=== PATIENT | female | born 1990 | race Caucasian/White ===

== ENCOUNTER 2018-03-09 19:58 | Inpatient (IN) ==
[2018-03-09 21:15] LABS: Baso % (Auto) 0.3 % (0.0-2.0); Eos # (Auto) 0.2 th/mm3 (0.0-0.4); Eos % (Auto) 1.4 % (0.0-4.0); Hemoglobin 12.8 gm/dL (11.6-15.3); Lymph # (Auto) 2.1 th/mm3 (1.0-4.8); Lymph % (Auto) 16.7 % (9.0-44.0); Mean Corpuscular HGB Conc 33.6 % (32.0-36.0); Mean Corpuscular Hemoglobin 28.6 pg (27.0-34.0); Mean Corpuscular Volume 84.9 fL (80.0-100.0); Mean Platelet Volume 9.3 fL (7.0-11.0); Mono # (Auto) 0.9 th/mm3 (0.0-0.9); Mono % (Auto) 7.6 % (0.0-8.0); Neut # (Auto) 9.2 th/mm3 (1.8-7.7); Platelet Count 175 th/mm3 (150-450); Red Blood Count 4.48 mil/mm3 (4.00-5.30); Red Cell Distribution Width 14.4 % (11.6-17.2); White Blood Count 12.5 th/mm3 (4.0-11.0)
[2018-03-09 21:28] LABS: Amphetamine Urine With Conf Neg (Neg); Benzodiazepine Urine With Conf Neg (Neg); Cocaine Urine With Conf Neg (Neg); Opiates Urine With Conf Neg (Neg)
[2018-03-09 21:29] LABS: Cannabinoid Urine With Conf Neg (Neg)
[2018-03-09 21:31] LABS: Amorphous Sediment,Urine Rare /hpf; Bacteria,Urine Occasional /hpf; Bilirubin,Urine Negative (Negative); Clarity,Urine Hazy (Clear); Color,Urine Yellow (Yellw/Straw); Glucose,Urine (UA) Negative (Negative); Leukocyte Esterase,Urine Negative (Negative); Mucus,Urine Few /lpf (Occasional); Nitrite,Urine Negative (Negative); Specific Gravity,Urine 1.011 (1.002-1.035); Squamous Epithelial Cell,Urine 19 /hpf (0-5)
[2018-03-09] MEDS ORDERED: Naloxone Inj 0.4 MG/ML Vial IV.PUSH PRN (21:55)
[2018-03-09] MEDS ORDERED: fentaNYL Citrate Inj 100 MCG/2 ML Ampul IV.PUSH PRN ×2 (21:55)
[2018-03-09] MEDS ORDERED: Sod Chloride 0.9% Inj 1,000 ML IV.CONT PRN (21:55)
[2018-03-09] MEDS ORDERED: Oxytocin 30 Units/500ml Premix 30 UNITS/500 ML BAG IV.SIG ONE (21:55)
[2018-03-09] MEDS ORDERED: Sodium Chlor 0.9% Inj 500 ML IV.SIG PRN (21:55)
[2018-03-09] MEDS ORDERED: Citric Acid/Sodium Citrate Liq 30 ML UDC PO SCH (22:00)
[2018-03-09] MEDS ORDERED: Oxytocin 30 Units/500ml Premix 30 UNITS/500 ML BAG IV.CONT PRN (22:01)
[2018-03-09] MEDS: Acetaminophen 325 MG Tablet PO PRN (23:39)
[2018-03-10] MEDS: Famotidine 20 MG Tablet PO SCH (10:47)
[2018-03-10] MEDS ORDERED: fentaNYL 2MCG-Bupiv 0.125% Epi 150 ML EPIDURAL ONE (11:32)
[2018-03-10] MEDS ORDERED: Lidocaine PF 1% Inj 5 ML Vial ONE (12:17)
[2018-03-10] MEDS ORDERED: Lidocaaine 1.5%/Epinephrine 1:200,000 PF Inj 5 ML Amp ONE (12:17)
[2018-03-10] MEDS ORDERED: fentaNYL Citrate Inj 100 MCG/2 ML Ampul EPIDURAL ONE (12:33)
[2018-03-10] MEDS ORDERED: fentaNYL 2MCG-Bupiv 0.125% Epi 150 ML EPIDURAL PRN (12:33)
[2018-03-10] MEDS ORDERED: Diphtheria/Tetanus/Pertussis Vaccine Inj 0.5 ML Syringe IM ONE (16:00)
[2018-03-10] MEDS ORDERED: Varicella Vaccine Live 1350 UNITS/0.5 ML Vial SQ ONE (16:00)
[2018-03-10] MEDS ORDERED: Measles/Mumps/Rubella Vaccine Inj 0.5 ML Vial SQ ONE (16:00)
[2018-03-10] MEDS ORDERED: Lidocaine 1% Inj 50 ML Vial ONE (19:31)
[2018-03-10] MEDS ORDERED: Benzocaine 20% Top Spray 60 ML Can TOPICAL PRN (20:27)
[2018-03-10] MEDS ORDERED: Oxytocin 30 Units/500ml Premix 30 UNITS/500 ML BAG IV.CONT PRN (20:27)
[2018-03-10] MEDS ORDERED: Zolpidem Tartrate 5 MG Tablet PO PRN (20:27)
[2018-03-10] MEDS ORDERED: Acetaminophen 325 MG Tablet PO PRN (20:27)
[2018-03-10] MEDS ORDERED: Witch Hazel 50%/Glyderin 12.5% 40 Pad Jar RECTAL PRN (20:27)
[2018-03-10] MEDS ORDERED: Naloxone Inj 0.4 MG/ML Vial IV.PUSH PRN (20:27)
[2018-03-10] MEDS ORDERED: Bisacodyl 10 MG Supp RECTAL PRN (20:27)
--- NOTE | 2018-03-10 20:35 | P.OBDELI ---
Weeks Gestation: 40 Patient Started Active Labor: No Active Labor Start Date: 03/10/18 Medical Induction of Labor: Yes Medical Induction Start Date: 03/09/18 Artificial Rupture of Membrane: Yes Artificial ROM Date: 03/10/18 Anesthesia: Epidural Episiotomy: none Vaginal Delivery: Normal Presentation: Occiput anterior Nuchal Cord: x1 Delayed Cord Clamping (45 sec): No Placenta: Spontaneous delivery, Intact, 3 vessel cord Laceration: Perineal, 2 deg Estimated blood loss (mL): 300 Infant: Male (Beautiful delivery of Jack. Had second degree perineal tear and bilateral first degree labial tears. Repaired with 3-0 vicryl and 5-0 vicryl. ) Additional Information: Successful ... Some problems with breathing after delivery..NICU.
[2018-03-11] MEDS: Acetaminophen 325 MG Tablet PO PRN (07:36)
[2018-03-11] MEDS: Prenatal Vit/Ca/Iron/Folic Acid Tablet PO SCH (10:05)
[2018-03-11] MEDS: Senna/Docusate Sodium 8.6/50 MG Tablet PO SCH ×3 (10:05→23:54)
[2018-03-11] MEDS: Famotidine 20 MG Tablet PO SCH ×3 (11:09→23:53)
--- NOTE | 2018-03-11 12:19 | P.PNOB ---
Subjective Post day: 1 Objective Vital Signs/I&O: Vital Signs 03/10/18 12:25 03/10/18 14:48 03/10/18 16:05 Temperature 97.7 F Pulse Rate 78 77 71 Respiratory Rate 18 Blood Pressure 91/52 L 97/58 L 103/59 L 03/10/18 16:31 03/10/18 16:41 03/10/18 17:01 Temperature Pulse Rate 69 82 Respiratory Rate 18 Blood Pressure 112/59 L 101/62 03/10/18 17:40 03/10/18 18:35 03/10/18 18:40 Temperature Pulse Rate 90 83 76 Respiratory Rate Blood Pressure 121/70 118/74 03/10/18 20:16 03/10/18 20:30 03/10/18 20:46 Temperature Pulse Rate 114 H 90 87 Respiratory Rate 18 18 18 Blood Pressure 108/70 106/62 112/63 03/10/18 21:14 03/10/18 22:15 03/11/18 07:30 Temperature 98.6 F 97.9 F Pulse Rate 85 81 74 Respiratory Rate 18 18 16 Blood Pressure 111/75 117/73 97/52 L Intake & Output 03/10/18 03/11/18 03/11/18 18:59 06:59 18:59 Intake Total 1000 / 1000 Balance 1000 / 1000 Intake: IV 1000 / 1000 LR 1000 mL Inj 1,000 ML @ 125 1000 / 1000 mls/hr IV.CONT .Q8H [facility] Rx#: [id number] Result Diagrams: 03/09/18 20:36 Objective Remarks: GENERAL: Well-nourished, well-developed patient. CARDIOVASCULAR: Regular rate and rhythm without murmurs, gallops, or rubs. RESPIRATORY: Breath sounds equal bilaterally. No accessory muscle use. ABDOMEN/GI: Abdomen soft, non-tender. Fundus: Firm, non-tender at umbilicus. GENITOURINARY: Light to moderate bleeding. EXTREMITIES: No cyanosis or edema, non-tender, without signs of DVT. Medications and IVs: Active Medications Acetaminophen (Tylenol) 650 mg PO Q4H PRN PRN Reason: HEADACHE Last Admin: 03/11/18 07:36 Dose: 650 mg Acetaminophen (Tylenol) 650 mg PO Q4H PRN PRN Reason: PAIN SCALE 1 TO 2 Al Hydroxide/Mg Hydroxide (Milk Of Magnesia Liq) 30 ml PO Q12H PRN PRN Reason: Mild Constipation Benzocaine (Americaine 20% Top Rienzi) 1 spray TOPICAL Q4H PRN PRN Reason: For Perineum Discomfort Bisacodyl (Dulcolax Supp) 10 mg RECTAL DAILY PRN PRN Reason: SEVERE CONSITIPATION Ephedrine Sulfate (Ephedrine/Ns Syringe) 10 mg IV.PUSH UNSCH PRN PRN Reason: SEE LABEL COMMENTS Stop: 03/11/18 12:33 Famotidine (Pepcid) 20 mg PO BID [facility] Last Admin: 03/11/18 11:09 Dose: Not Given Oxytocin (Pitocin 30 Units/Ns 500 Ml Premix) 30 units in 500 mls @ 2 mls/hr IV.CONT TITRATE PRN; Protocol PRN Reason: For induction of labor Last Admin: 03/09/18 22:23 Dose: 2 milliunit/min, 2 mls/hr Fentanyl/Bupivacaine/Sodium Chlor (Fentanyl 2 Mcg-Bupiv 0.125% Epi) 150 mls @ 10 mls/hr EPIDURAL PRN PRN PRN Reason: for Labor Pain Last Admin: 03/10/18 11:45 Dose: 10 mls/hr Oxytocin (Pitocin 30 Units/Ns 500 Ml Premix) 30 units in 500 mls @ 100 mls/hr IV.CONT UNSCH PRN PRN Reason: Heavy bleeding Ibuprofen (Motrin) 800 mg PO Q8H PRN PRN Reason: For Cramping Lactulose (Lactulose Liq) 30 ml PO DAILY PRN PRN Reason: SEVERE CONSITIPATION Miscellaneous Information (Misc Information) 1 each OTHER UNSCH PRN PRN Reason: SEE LABEL COMMENTS Stop: 03/11/18 12:33 Miscellaneous Information (Misc Information) 1 each OTHER UNSCH PRN PRN Reason: SEE LABEL COMMENTS Stop: 03/11/18 12:33 Naloxone HCl (Narcan Inj) 0.1 mg IV.PUSH Q2M PRN PRN Reason: for opiate reversal Ondansetron HCl (Zofran Inj) 4 mg IV.PUSH Q6H PRN PRN Reason: NAUSEA Last Admin: 03/10/18 14:07 Dose: 4 mg Ondansetron HCl (Zofran Odt) 4 mg PO Q6H PRN PRN Reason: NAUSEA OR VOMITING Vit/Calcium/Iron/Folic Ac (Stuartnatal Plus 3) 1 tab PO DAILY [facility] Last Admin: 03/11/18 10:05 Dose: 1 tab Senna/Docusate Sodium (Carlotta-Colace) 1 tab PO BID [facility] Last Admin: 03/11/18 10:05 Dose: 1 tab Sennosides (Senokot) 17.2 mg PO Q12H PRN PRN Reason: Moderate Constipation Sodium Chloride (Ns Flush) 2 ml IV.FLUSH BID [facility] Last Admin: 03/11/18 10:05 Dose: 2 ml Sodium Chloride (Ns Flush) 2 ml IV.FLUSH PRN PRN PRN Reason: FLUSH AFTER USING IV ACCESS Witch Madai/Glycerin (Tucks Pads) 1 applicatio RECTAL QID PRN PRN Reason: HEMORRHOIDS Zolpidem Tartrate (Ambien) 5 mg PO HS PRN PRN Reason: SLEEP Assessment and Plan - Plan ppd #1 successful pt doing well not taking any pain medications at this time, only feeling cramping with BF bonding with infant routine care Discharge Planning: dc home tomorrow
--- NOTE | 2018-03-12 07:57 | P.PNOB ---
Subjective Post day: 2 Interval history: Doing well, ready for discharge home Objective Vital Signs/I&O: Vital Signs 03/11/18 20:30 Temperature 98.4 F Pulse Rate 68 Respiratory Rate 18 Blood Pressure 144/88 H Result Diagrams: 03/09/18 20:36 Objective Remarks: GENERAL: Well-nourished, well-developed patient. CARDIOVASCULAR: Regular rate and rhythm without murmurs, gallops, or rubs. RESPIRATORY: Breath sounds equal bilaterally. No accessory muscle use. ABDOMEN/GI: Abdomen soft, non-tender. Fundus: Firm, non-tender at umbilicus. GENITOURINARY: Light to moderate bleeding. EXTREMITIES: No cyanosis or edema, non-tender, without signs of DVT. Medications and IVs: Active Medications Acetaminophen (Tylenol) 650 mg PO Q4H PRN PRN Reason: HEADACHE Last Admin: 03/11/18 07:36 Dose: 650 mg Acetaminophen (Tylenol) 650 mg PO Q4H PRN PRN Reason: PAIN SCALE 1 TO 2 Al Hydroxide/Mg Hydroxide (Milk Of Magnesia Liq) 30 ml PO Q12H PRN PRN Reason: Mild Constipation Benzocaine (Americaine 20% Top [place]) 1 spray TOPICAL Q4H PRN PRN Reason: For Perineum Discomfort Last Admin: 03/11/18 16:36 Dose: 1 spray Bisacodyl (Dulcolax Supp) 10 mg RECTAL DAILY PRN PRN Reason: SEVERE CONSITIPATION Famotidine (Pepcid) 20 mg PO BID [facility] Last Admin: 03/11/18 23:53 Dose: Not Given Oxytocin (Pitocin 30 Units/Ns 500 Ml Premix) 30 units in 500 mls @ 2 mls/hr IV.CONT TITRATE PRN; Protocol PRN Reason: For induction of labor Last Admin: 03/09/18 22:23 Dose: 2 milliunit/min, 2 mls/hr Fentanyl/Bupivacaine/Sodium Chlor (Fentanyl 2 Mcg-Bupiv 0.125% Epi) 150 mls @ 10 mls/hr EPIDURAL PRN PRN PRN Reason: for Labor Pain Last Admin: 03/10/18 11:45 Dose: 10 mls/hr Oxytocin (Pitocin 30 Units/Ns 500 Ml Premix) 30 units in 500 mls @ 100 mls/hr IV.CONT UNSCH PRN PRN Reason: Heavy bleeding Ibuprofen (Motrin) 800 mg PO Q8H PRN PRN Reason: For Cramping Last Admin: 03/12/18 00:18 Dose: 800 mg Lactulose (Lactulose Liq) 30 ml PO DAILY PRN PRN Reason: SEVERE CONSITIPATION Naloxone HCl (Narcan Inj) 0.1 mg IV.PUSH Q2M PRN PRN Reason: for opiate reversal Ondansetron HCl (Zofran Inj) 4 mg IV.PUSH Q6H PRN PRN Reason: NAUSEA Last Admin: 03/10/18 14:07 Dose: 4 mg Ondansetron HCl (Zofran Odt) 4 mg PO Q6H PRN PRN Reason: NAUSEA OR VOMITING Vit/Calcium/Iron/Folic Ac (Stuartnatal Plus 3) 1 tab PO DAILY [facility] Last Admin: 03/11/18 10:05 Dose: 1 tab Senna/Docusate Sodium (Carlotta-Colace) 1 tab PO BID [facility] Last Admin: 03/11/18 23:54 Dose: 1 tab Sennosides (Senokot) 17.2 mg PO Q12H PRN PRN Reason: Moderate Constipation Sodium Chloride (Ns Flush) 2 ml IV.FLUSH BID [facility] Last Admin: 03/11/18 23:50 Dose: Not Given Sodium Chloride (Ns Flush) 2 ml IV.FLUSH PRN PRN PRN Reason: FLUSH AFTER USING IV ACCESS Witch Madai/Glycerin (Tucks Pads) 1 applicatio RECTAL QID PRN PRN Reason: HEMORRHOIDS Last Admin: 03/11/18 16:37 Dose: 1 applicatio Zolpidem Tartrate (Ambien) 5 mg PO HS PRN PRN Reason: SLEEP Assessment and Plan - Plan 27-year-old status post at 40 weeks. 1. day #2: Meeting milestones, discharge home today. Aware precautions expectations and follow-up.
[2018-03-12] MEDS: Prenatal Vit/Ca/Iron/Folic Acid Tablet PO SCH (09:19)
[2018-03-12] MEDS: Senna/Docusate Sodium 8.6/50 MG Tablet PO SCH (09:19)
== END 2018-03-12 13:13 | disposition home or self-care (01) ==
LOC: H2E 19:58 → H1EA 03-10 22:05
PROVIDERS: ADMIT Obstetrics & Gynecology; ATTEND Obstetrics & Gynecology